=== PATIENT | female | born 1930 | race Caucasian/White ===

== ENCOUNTER → 2019-07-04 | Outpatient (CLI) | payer OTHER ==
[~2019-07-04] MED LIST: CATHETER FLUSH 10 ML SYR IV PRN; HOLD METFORMIN - RECEIVED CONTRAST 20 ML VIAL IV SCH; IOHEXOL 350 MG/ML 100 ML (OMNIPAQUE 350) VIAL IV ONE; NS 100 ML (IVPB) BAG IV ONE
[2019-07-04 12:49] LABS: CREATININE SERUM 1.03 MG/DL (0.60-1.30)
--- NOTE | 2019-07-04 14:02 | Diagnostic Imaging Report ---
PROCEDURE: CT chest with contrast only. TECHNIQUE: Multiple contiguous axial images were obtained through the chest after administration of intravenous contrast. Auto Exposure Controls were utilized during the CT exam to meet ALARA standards for radiation dose reduction. INDICATION: History of colon cancer. COMPARISON: I have no previous for comparison. FINDINGS: Within the right upper lobe laterally, a lingular configured opacity extends to abut the pleura and measures 4.2 x 3.5 cm does. It shows some peripheral air bronchograms but centrally appears more soft tissue in density. While not protocoled for pulmonary arterial evaluation in particular, the regional right upper lobe subtending pulmonary arterial segments show no appreciable occlusion. This therefore is presumed on the basis of pneumonia and inflammatory disease but warrants a CT follow-up to exclude a mass. The heart is upper limits. There is mild venous congestion. No cyrus pulmonary edema. No pleural fluid. There is slight dependent basilar atelectasis. There is a small hiatal hernia. There is no thoracic lymphadenopathy. No acute chest wall pathology. The visualized upper abdomen demonstrates no acute-appearing abnormality. IMPRESSION: Wedge configured triangular opacity, juxtapleural right upper lobe laterally. While the morphology is vocative of a sequelae of PE, there is no identifiable regional pulmonary arterial filling defect or embolus. Follow-up to confirm resolution recommended. No other focal pulmonary pathology. No lymphadenopathy. No acute aortic disease. We note mild cardiomegaly and vascular congestion without pleural fluid or cyrus edema. Dictated by: Dictated on workstation # [id number]
== END ==
LOC: RAD 12:13
PROVIDERS: ATTEND Nurse Practitioner Family
DX: I51.7 Cardiomegaly (principal); J98.4 Other disorders of lung; J44.9 Chronic obstructive pulmonary disease, unspecified; R91.8 Other nonspecific abnormal finding of lung field; R09.89 Other specified symptoms and signs involving the circulatory and respiratory systems; Z86.711 Personal history of pulmonary embolism; Z85.038 Personal history of other malignant neoplasm of large intestine
CPT/HCPCS: 36415; 71260; 82565; 84520

== ENCOUNTER → 2019-07-18 | Outpatient (CLI) | payer OTHER ==
[~2019-07-18] MED LIST changes: -CATHETER FLUSH 10 ML SYR IV PRN; -HOLD METFORMIN - RECEIVED CONTRAST 20 ML VIAL IV SCH; -IOHEXOL 350 MG/ML 100 ML (OMNIPAQUE 350) VIAL IV ONE; -NS 100 ML (IVPB) BAG IV ONE; +RT-ALBUTEROL SULF 2.5 MG/3 ML PRE-MIX VIAL INH ONE
== END ==
LOC: RT 15:37 → EDUNIT# 16:00
PROVIDERS: ATTEND Nurse Practitioner Family
DX: J44.9 Chronic obstructive pulmonary disease, unspecified (principal); J98.4 Other disorders of lung; R91.8 Other nonspecific abnormal finding of lung field; Z86.711 Personal history of pulmonary embolism
CPT/HCPCS: 94060; 94726; 94729

== ENCOUNTER → 2019-08-05 | Outpatient (CLI) | payer OTHER ==
[~2019-08-05] MED LIST changes: +CATHETER FLUSH 10 ML SYR IV PRN; +HOLD METFORMIN - RECEIVED CONTRAST 20 ML VIAL IV SCH; +IOHEXOL 350 MG/ML 100 ML (OMNIPAQUE 350) VIAL IV ONE; +NS 100 ML (IVPB) BAG IV ONE; -RT-ALBUTEROL SULF 2.5 MG/3 ML PRE-MIX VIAL INH ONE
[2019-08-05 10:47] LABS: CREATININE SERUM 0.98 MG/DL (0.60-1.30)
--- NOTE | 2019-08-05 11:42 | Diagnostic Imaging Report ---
PROCEDURE: CT chest with contrast only. TECHNIQUE: Multiple contiguous axial images were obtained through the chest after administration of intravenous contrast. Auto Exposure Controls were utilized during the CT exam to meet ALARA standards for radiation dose reduction. INDICATION: Dyspnea, hypoxia and COPD. Comparison made to prior examination 07/04/2019. FINDINGS: There is an unchanged wedge-shaped consolidation in the periphery of the right upper lobe laterally. There is minimal linear scarring in the left lung base. There is no pleural or pericardial fluid. There is no pneumothorax. The ascending aorta measures up to 4.2 cm. There are no filling defects seen within the pulmonary arteries to suggest pulmonary embolism. There is no pathologically enlarged adenopathy in the chest. There is cardiomegaly and coronary artery calcification. There is a small hiatal hernia. The visualized intra-abdominal structures are unremarkable. There are confluent osteophytes in the thoracic spine suggestive of ankylosing spondylitis. IMPRESSION: Unchanged wedge-shaped consolidation in the lateral aspect the right upper lobe. This likely reflects chronic sequela of either inflammatory process or possibly pulmonary embolism. Cardiomegaly and coronary artery calcification. Enlargement of the ascending aorta up to 4.2 cm. Small hiatal hernia. Degenerative changes in the spine with confluent osteophytes suspect for ankylosing spondylitis. Dictated by: Dictated on workstation # [id number]
== END ==
LOC: RAD 10:15
PROVIDERS: ATTEND Nurse Practitioner Family
DX: J44.9 Chronic obstructive pulmonary disease, unspecified (principal); J18.1 Lobar pneumonia, unspecified organism; J98.4 Other disorders of lung; R91.8 Other nonspecific abnormal finding of lung field
CPT/HCPCS: 36415; 71260; 82565; 84520

== ENCOUNTER 2019-10-31 11:45 | Emergency (ER) | payer OTHER ==
[~2019-10-31] VITALS: Ht 175.3 cm; Wt 90.7 kg
[2019-10-31] MEDS ORDERED: NS IV 500 ML 500 ML IV ONE (11:55)
[2019-10-31 12:10] LABS: BASOPHILS % (AUTO) 0 % (0-10); EOSINOPHILS # (AUTO) 0.2 10^3/uL (0.0-0.3); EOSINOPHILS % (AUTO) 3 % (0-10); HEMATOCRIT 46 % (40-54); HEMOGLOBIN 15.1 G/DL (13.3-17.7); LYMPHOCYTES # (AUTO) 1.4 X 10^3 (1.0-4.0); LYMPHOCYTES % (AUTO) 18 % (12-44); MEAN CORPUSCULAR HEMOGLOBIN 29 PG (25-34); MEAN CORPUSCULAR HGB CONC 33 G/DL (32-36); MEAN CORPUSCULAR VOLUME 90 FL (80-99); MEAN PLATELET VOLUME 10.3 FL (7.4-10.4); MONOCYTES # (AUTO) 0.3 X 10^3 (0.0-1.0); MONOCYTES % (AUTO) 4 % (0-12); NEUTROPHILS # (AUTO) 6.1 X 10^3 (1.8-7.8); NEUTROPHILS % (AUTO) 76 % (42-75); PLATELET COUNT 152 10^3/uL (130-400); WHITE BLOOD COUNT 8.1 10^3/uL (4.3-11.0)
--- NOTE | 2019-10-31 12:16 | ED Syncope ---
General Chief Complaint: Dizziness/Syncope Stated Complaint: SYNCOPE Source of Information: Patient, EMS Exam Limitations: No Limitations History of Present Illness Date Seen by Provider: Oct 31, 2019 Time Seen by Provider: 11:48 Initial Comments Here with report of syncopal episodes this morning while standing up to go to the bathroom. Apparently he passed out and fell against a wall. Complains of head and neck pain as well as left knee pain. Had shoulder pain to the right precipitating the event and it still hurts now. Normal mentation currently and denies headache specifically except for a little bit of pain where he hit his head. No wheezes or abrasions noted or reported. He did have an episode similar to this last year under the same circumstances. Timing/Prior Episodes: Remote History, Single Episode Today Symptoms Prior to Episode: Lightheadedness Precipitating Factors: Standing Loss of Consciousness: Brief (Seconds) Current Symptoms: No Chest Pain, No Loss of Bladder Control, No Loss of Bowel Control, No Nausea, No Pale, No Weakness Allergies and Home Medications Allergies Coded Allergies: No Allergy Information Available (Unverified , 07/04/19) Patient Home Medication List Home Medication List Reviewed: Yes Review of Systems Constitutional: see HPI; No chills, No fever EENTM: no symptoms reported Respiratory: no symptoms reported Cardiovascular: No chest pain; syncope Gastrointestinal: No abdominal pain, No nausea, No vomiting Genitourinary: no symptoms reported Musculoskeletal: No back pain; neck pain Skin: no symptoms reported Psychiatric/Neurological: Denies Anxiety; Headache (mild frontal or he struck his head); Denies Numbness, Denies Paresthesia, Denies Weakness All Other Systems Reviewed Negative Unless Noted: Yes Past Rccturr-Zghxuo-Hpvosh Hx Past Med/Social Hx: Reviewed Nursing Past Med/Soc Hx Patient Social History Alcohol Beverage of Choice: Wine Recent Foreign Travel: No Contact w/Someone Who Travel: No Family Medical History Reviewed Nursing Family Hx No Pertinent Family Hx Physical Exam Vital Signs Vital Signs - First Documented 10/31/19 11:45 Pulse 94 Resp 17 B/P (MAP) 129/68 (88) Pulse Ox 97 O2 Delivery Room Air Capillary Refill : Height, Weight, BMI Height: '" Weight: lbs. oz. kg; BMI Method: General Appearance: No Apparent Distress, WD/WN HEENT: Other (previous right eye surgery with glass. Left pupil pinpoint with extraocular movements intact) Neck: Non Tender, Supple Cardiovascular: Regular Rate, Rhythm, No Murmur Respiratory: Lungs Clear, Normal Breath Sounds Gastrointestinal: Non Tender, Soft Back: Normal Inspection, No CVA Tenderness, No Vertebral Tenderness Extremities: Normal Range of Motion, Other (mild tenderness to the anterior left knee. Superficial abrasion noted in the area of the knee cap anteriorly. No obvious deformity and no significant swelling or leading.) Neurologic/Psychiatric: Alert, Oriented x3, Normal Mood/Affect Cranial Nerves: Normal Hearing, Normal Speech Skin: Warm/Dry, Erythema (with minimal abrasion to the left anterior knee.) Progress/Results/Core Measures Results/Orders Lab Results Laboratory Tests Test 10/31/19 11:55 10/31/19 13:13 Range/Units White Blood Count 8.1 4.3-11.0 10^3/uL Red Blood Count 5.13 4.35-5.85 10^6/uL Hemoglobin 15.1 13.3-17.7 G/DL Hematocrit 46 40-54 % Mean Corpuscular Volume 90 80-99 FL Mean Corpuscular Hemoglobin 29 25-34 PG Mean Corpuscular Hemoglobin Concent 33 32-36 G/DL Red Cell Distribution Width 15.0 H 10.0-14.5 % Platelet Count 152 130-400 10^3/uL Mean Platelet Volume 10.3 7.4-10.4 FL Neutrophils (%) (Auto) 76 H 42-75 % Lymphocytes (%) (Auto) 18 12-44 % Monocytes (%) (Auto) 4 0-12 % Eosinophils (%) (Auto) 3 0-10 % Basophils (%) (Auto) 0 0-10 % Neutrophils # (Auto) 6.1 1.8-7.8 X 10^3 Lymphocytes # (Auto) 1.4 1.0-4.0 X 10^3 Monocytes # (Auto) 0.3 0.0-1.0 X 10^3 Eosinophils # (Auto) 0.2 0.0-0.3 10^3/uL Basophils # (Auto) 0.0 0.0-0.1 10^3/uL Sodium Level 140 135-145 MMOL/L Potassium Level 4.3 3.6-5.0 MMOL/L Chloride Level 104 98-107 MMOL/L Carbon Dioxide Level 26 21-32 MMOL/L Anion Gap 10 5-14 MMOL/L Blood Urea Nitrogen 15 7-18 MG/DL Creatinine 1.26 0.60-1.30 MG/DL Estimat Glomerular Filtration Rate 54 BUN/Creatinine Ratio 12 Glucose Level 140 H 70-105 MG/DL Calcium Level 9.3 8.5-10.1 MG/DL Corrected Calcium 9.1 8.5-10.1 MG/DL Magnesium Level 2.1 1.6-2.4 MG/DL Total Bilirubin 0.5 0.1-1.0 MG/DL Aspartate Amino Transf (AST/SGOT) 16 5-34 U/L Alanine Aminotransferase (ALT/SGPT) 11 0-55 U/L Alkaline Phosphatase 86 40-136 U/L Troponin I < 0.028 <0.028 NG/ML Total Protein 6.5 6.4-8.2 GM/DL Albumin 4.2 3.2-4.5 GM/DL Prothrombin Time 14.2 12.2-14.7 SEC INR Comment 1.1 0.8-1.4 Activated Partial Thromboplast Time 25 24-35 SEC My Orders Orders - AMAIRANI MANLEY MD Ct Head/Cervical Spine Wo (10/31/19 11:55) Ekg Tracing (10/31/19 11:55) Monitor-Rhythm Ecg Trace Only (10/31/19 11:55) Cbc With Automated Diff (10/31/19 11:55) Comprehensive Metabolic Panel (10/31/19 11:55) Magnesium (10/31/19 11:55) Protime With Inr (10/31/19 11:55) Partial Thromboplastin Time (10/31/19 11:55) Troponin I (10/31/19 11:55) Ed Iv/Invasive Line Start (10/31/19 11:55) Ns Iv 500 Ml (Sodium Chloride 0.9%) (10/31/19 11:55) Chest 1 View, Ap/Pa Only (10/31/19 11:55) Knee, Left, 3 Views (10/31/19 12:16) Medications Given in ED Current Medications Medications Dose Ordered Sig/Isabela Route Start Time Stop Time Status Last Admin Dose Admin Sodium Chloride 500 ml @ 0 mls/hr Q0M ONCE IV 10/31/19 11:55 10/31/19 11:58 DC 10/31/19 12:10 0 MLS/HR Vital Signs/I&O 10/31/19 11:45 Pulse 94 Resp 17 B/P (MAP) 129/68 (88) Pulse Ox 97 O2 Delivery Room Air Progress Progress Note : Progress Note Seen and evaluated on arrival by EMS. IV established by EMS. C-collar changed. Does have mild mid neck pain as well as for head pain. We will get CT head and neck. Patient reports that he had right shoulder and arm pain precipitating event so we will go ahead and do EKG as well as labs and troponin. We will get a chest x-ray and left knee x-ray due to findings on history and exam. Monitor patient. 1349: No significant findings and patient is overall doing much better. Discharged home with return precautions. Patient verbalize understanding instructions and agreement with plan. All findings concerns discussed with the patient, his and other family members who are in agreement. Initial ECG Impression Date: Oct 31, 2019 Initial ECG Impression Time: 11:52 Initial ECG Rate: 93 Comment Sinus rhythm with right bundle branch block. Left axis deviation. No evidence of ST elevation [place]. No previous available for comparison. Interpreted by me. Diagnostic Imaging Diagonstic Imaging: Xray Plain Films/CT/US/NM/MRI: chest Comments NAME: STEPHANIE COLINDRES [facility] REC#: [id number] PT STATUS: REG ER : 1930 PHYSICIAN: AMAIRANI MANLEY MD ADMIT DATE: 10/31/19/ER Signed Date of Exam:10/31/19 CHEST 1 VIEW, AP/PA ONLY INDICATION: Status post fall with chest pain. Frontal chest obtained at 12:38 p.m. There is no prior chest x-ray for comparison. FINDINGS: There is cardiomegaly. Mediastinal silhouette is unremarkable. There is a density in the right upper lobe which is unchanged compared to a prior chest CT of 08/05/2019. Lungs are otherwise clear. There is no pneumothorax or pleural fluid. IMPRESSION: Cardiomegaly. Stable density in the right upper lobe, see previous dictation of chest CT of 08/05/2019. No new abnormality. Dictated by: Dictated on workstation # [id number] Dict: 10/31/19 1252 Trans: 10/31/19 1302 [id number] Interpreted by: AMY WU MD Electronically signed by: AMY WU MD 10/31/19 1302 Diagonstic Imaging: CT Plain Films/CT/US/NM/MRI: c-spine, head Comments [facility] [place], [place] NAME: STEPHANIE COLINDRES [facility] REC#: [id number] PT STATUS: REG ER : 1930 PHYSICIAN: AMAIRANI MANLEY MD ADMIT DATE: 10/31/19/ER Draft Date of Exam:10/31/19 CT HEAD/CERVICAL SPINE WO PROCEDURE: CT head and CT cervical spine without contrast. TECHNIQUE: Multiple contiguous axial images were obtained through the brain and cervical spine without the use of intravenous contrast. Sagittal and coronal reformations through the cervical spine were then performed. Auto Exposure Controls were utilized during the CT exam to meet ALARA standards for radiation dose reduction. INDICATION: Fall. COMPARISON: No prior studies are available for comparison. FINDINGS: CT head: The ventricles and sulci are appropriate for the patient's age. Moderate periventricular hypodensity is noted consistent with senescent change. No sulcal effacement or midline shift is identified. No acute intra-axial or extra-axial hemorrhage is detected. Cisterns are patent. Visualized paranasal sinuses are clear. IMPRESSION: Senescent changes. No acute intracranial process is detected. CT cervical spine: Curvature and alignment of cervical spine is normal. There is multilevel degenerative disc disease with variable disc space narrowing and marginal spurring. No fractures are seen. Prevertebral tissues are within normal limits. The odontoid is intact. IMPRESSION: Cervical spondylosis. No acute bony abnormality is detected. Dictated on workstation # [id number] Dict: 10/31/19 1231 Trans: 10/31/19 1236 [facility] [id number] Interpreted by: CAROLANN LYLES MD Electronically signed by: Diagonstic Imaging: Xray Plain Films/CT/US/NM/MRI: knee Comments [facility] [place], [place] NAME: STEPHANIE COLINDRES [facility] REC#: [id number] PT STATUS: REG ER : 1930 PHYSICIAN: AMAIRANI MANLEY MD ADMIT DATE: 10/31/19/ER Draft Date of Exam:10/31/19 KNEE, LEFT, 3 VIEWS INDICATION: Fall with left knee pain. AP, oblique, and lateral views of the left knee are obtained. There is no definite acute fracture or acute bony abnormality. There is superior and inferior patellar spurring. There is mild medial joint space narrowing. There is a calcification adjacent to the medial tibia which appears likely chronic. IMPRESSION: Chronic findings as above with no definite acute abnormality. Dictated on workstation # [id number] Dict: 10/31/19 1302 Trans: 10/31/19 1305 [facility] [id number] Interpreted by: AMY WU MD Electronically signed by: Departure Impression Primary Impression: Syncope Qualified Codes: R55 - Syncope and collapse Additional Impression: Minor closed head injury Disposition: 01 HOME, SELF-CARE Condition: Improved Departure-Patient Inst. Decision time for Depature: 13:51 Referrals: NO,LOCAL PHYSICIAN (PCP/Family) Primary Care Physician Patient Instructions: Closed Head Injury (DC), Syncope (Fainting) (DC) Add. Discharge Instructions: All discharge instructions reviewed with patient and/or family. Voiced understanding. Continue home medications as previously prescribed. Continue breathing treatments as instructed and continue breathing exercises. Drink an adequate amount of fluids. Follow-up with your doctor early next week for recheck and further evaluation. Return for worse pain, fever, vomiting, weakness, breathing problems or other concerns as needed. AMAIRANI MANLEY MD Oct 31, 2019 12:16
[2019-10-31 12:28] LABS: ALANINE AMINOTRANSFERASE 11 U/L (0-55); ALBUMIN 4.2 GM/DL (3.2-4.5); ALKALINE PHOSPHATASE 86 U/L (40-136); BILIRUBIN,TOTAL 0.5 MG/DL (0.1-1.0); BUN/CREATININE RATIO 12; CALCIUM 9.3 MG/DL (8.5-10.1); CARBON DIOXIDE 26 MMOL/L (21-32); CHLORIDE 104 MMOL/L (98-107); CREATININE SERUM 1.26 MG/DL (0.60-1.30); GFR ESTIMATED 54; GLUCOSE 140 MG/DL (70-105); MAGNESIUM 2.1 MG/DL (1.6-2.4); POTASSIUM 4.3 MMOL/L (3.6-5.0); SODIUM 140 MMOL/L (135-145); TOTAL PROTEIN 6.5 GM/DL (6.4-8.2)
--- NOTE | 2019-10-31 12:37 | Diagnostic Imaging Report ---
PROCEDURE: CT head and CT cervical spine without contrast. TECHNIQUE: Multiple contiguous axial images were obtained through the brain and cervical spine without the use of intravenous contrast. Sagittal and coronal reformations through the cervical spine were then performed. Auto Exposure Controls were utilized during the CT exam to meet ALARA standards for radiation dose reduction. INDICATION: Fall. COMPARISON: No prior studies are available for comparison. FINDINGS: CT head: The ventricles and sulci are appropriate for the patient's age. Moderate periventricular hypodensity is noted consistent with senescent change. No sulcal effacement or midline shift is identified. No acute intra-axial or extra-axial hemorrhage is detected. Cisterns are patent. Visualized paranasal sinuses are clear. IMPRESSION: Senescent changes. No acute intracranial process is detected. CT cervical spine: Curvature and alignment of cervical spine is normal. There is multilevel degenerative disc disease with variable disc space narrowing and marginal spurring. No fractures are seen. Prevertebral tissues are within normal limits. The odontoid is intact. IMPRESSION: Cervical spondylosis. No acute bony abnormality is detected. Dictated by: Dictated on workstation # [id number]
--- NOTE | 2019-10-31 12:49 | NUR ---
Cervical collar removed by Dr. Macdonald at 1249.
--- NOTE | 2019-10-31 12:55 | Diagnostic Imaging Report ---
INDICATION: Status post fall with chest pain. Frontal chest obtained at 12:38 p.m. There is no prior chest x-ray for comparison. FINDINGS: There is cardiomegaly. Mediastinal silhouette is unremarkable. There is a density in the right upper lobe which is unchanged compared to a prior chest CT of 08/05/2019. Lungs are otherwise clear. There is no pneumothorax or pleural fluid. IMPRESSION: Cardiomegaly. Stable density in the right upper lobe, see previous dictation of chest CT of 08/05/2019. No new abnormality. Dictated by: Dictated on workstation # [id number]
--- NOTE | 2019-10-31 13:06 | Diagnostic Imaging Report ---
INDICATION: Fall with left knee pain. AP, oblique, and lateral views of the left knee are obtained. There is no definite acute fracture or acute bony abnormality. There is superior and inferior patellar spurring. There is mild medial joint space narrowing. There is a calcification adjacent to the medial tibia which appears likely chronic. IMPRESSION: Chronic findings as above with no definite acute abnormality. Dictated by: Dictated on workstation # [id number]
[2019-10-31 13:43] LABS: INR 1.1 (0.8-1.4); PROTHROMBIN TIME PATIENT 14.2 SEC (12.2-14.7)
[2019-10-31 14:00] VITALS: BP 152/87
--- OUTSIDE RECORDS SUMMARY | 2019-11-04 11:45 | XMS REPORT | Continuity of Care Document ---
Author Organization Unknown Address Unknown Phone Unavailable Allergies Active Description Code Type Severity Reaction Onset Reported/Identified Relationship to Patient Clinical Status Yes CODEINE 3888 DRUG INGREDI Med Rash~Confusion 04/19/2017 Yes LISINOPRIL 50312 DRUG INGREDI Low Nausea~Other 03/03/2018 Yes POTASSIUM CHLORIDE 49398 EMMANUEL G INGREDI Low Nausea 03/03/2018 Yes RANITIDINE 04899 DRUG INGREDI Low Nausea 03/03/2018 Yes No Allergy Information Available K8750 11305 Drug Allergy Unknown N/A 019 Medications There is no data. Problems Date Dx Coded Attending Type Code Diagnosis Diagnosed By 04/19/2017 HARJINDER BROWN I10 Essential (primary) hypertension 04/19/2017 VENANCIO WATSON J44.9 Chronic obstructive pulmonary disease, unspecified 08/15/2018 AMY GALLO 1000 01 Shortness of Breath 08/15/2018 AMY GALLO 1000 01 Shortness of Breath 08/15/2018 AMY GALLO J18. 1 Lobar pneumonia, unspecified organism 08/15/2018 AMY GALLO R91. 8 Other nonspecific abnormal finding of lung field 08/15/2018 AMY GALLO18. 1 Lobar pneumonia, unspecified organism 08/15/2018 AMY GALLO R91. 8 Other nonspecific abnormal finding of lung field 08/15/2018 AMY GALLO18. 1 Lobar pneumonia, unspecified organism 08/15/2018 AMY GALLO R91. 8 Other nonspecific abnormal finding of lung field 09/06/2018 MARCUS BINGHAM L01.01 Non- bullous impetigo 09/06/2018 MARCUS BINGHAM L30.9 Dermatitis, unspecified 03/07/2019 VENANCIO WATSON [id number] Loss of Consciousness 03/07/2019 VENANCIO WATSON [id number] Loss of Consciousness 03/07/2019 VENANCIO WATSON [id number] Loss of Consciousness 03/07/2019 VENANCIO WATSON [id number] Shortness of Breath 03/07/2019 VENANCIO WATSON [id number] Loss of Consciousness 03/07/2019 VENANCIO WATSON [id number] Shortness of Breath 03/07/2019 VENANCIO WATSON [id number] Loss of Consciousness 03/07/2019 VENANCIO WATSON 146401 Shortness of Breath 03/07/2019 VENANCIO WATSON [id number] Loss of Consciousness 03/07/2019 VENANCIO WATSON J44.1 Chronic obstructive pulmonary disease with (acute) exacerbation 03/07/2019 VENANCIO WATSON R09.02 Hypoxemia 03/07/2019 VENANCIO WATSON R55 Syncope and collapse 03/07/2019 VENANCIO WATSON44.1 Chronic obstructive pulmonary disease with (acute) exacerbation 03/07/2019 VENANCIO WATSON R09.02 Hypoxemia 03/07/2019 VENANCIO WATSON R55 Syncope and collapse 03/07/2019 VENANCIO WATSON R55 Syncope and collapse 03/07/2019 VENANCIO WATSON J44.1 Chronic obstructive pulmonary disease with (acute) exacerbation 03/07/2019 VENANCIO WATSON R09.02 Hypoxemia 03/07/2019 VENANCIO WATSON R55 Syncope and collapse 03/07/2019 VENANCIO WATSON T67.1XX A Heat syncope, initial encounter 03/07/2019 HARJINDER BROWN R55 Syncope and collapse 03/07/2019 VENANCIO WATSON44.1 Chronic obstructive pulmonary disease with (acute) exacerbation 03/07/2019 VENANCIO WATSON R09.02 Hypoxemia 03/07/2019 VENANCIO WATSON44.1 Chronic obstructive pulmonary disease with (acute) exacerbation 03/07/2019 VENANCIO WATSON R09.02 Hypoxemia 03/07/2019 VENANCIO WATSON44.1 Chronic obstructive pulmonary disease with (acute) exacerbation 03/07/2019 VENANCIO WATSON R09.02 Hypoxemia 03/07/2019 VENANCIO WATSON44.1 Chronic obstructive pulmonary disease with (acute) exacerbation 03/07/2019 VENANCIO WATSON R09.02 Hypoxemia 03/08/2019 VENANCIO WATSON J44.1 Chronic obstructive pulmonary disease with (acute) exacerbation 03/08/2019 VENANCIO WATSON R09.02 Hypoxemia 03/08/2019 VENANCIO WATSON J44.1 Chronic obstructive pulmonary disease with (acute) exacerbation 03/08/2019 VENANCIO WATSON R09.02 Hypoxemia 03/09/2019 VENANCIO WATSON J44.1 Chronic obstructive pulmonary disease with (acute) exacerbation 03/09/2019 VENANCIO WATSON R09.02 Hypoxemia 03/09/2019 VENANCIO WATSON J44.1 Chronic obstructive pulmonary disease with (acute) exacerbation 03/09/2019 VENANCIO WATSON R09.02 Hypoxemia 03/09/2019 VENANCIO WATSNO J44.1 Chronic obstructive pulmonary disease with (acute) exacerbation 03/09/2019 VENANCIO WATSON R09.02 Hypoxemia 03/09/2019 VENANCIO WATSON44.1 Chronic obstructive pulmonary disease with (acute) exacerbation 03/09/2019 VENANCIO WATSON R09.02 Hypoxemia 03/09/2019 VENANCIO WATSON44.1 Chronic obstructive pulmonary disease with (acute) exacerbation 03/09/2019 VENANCIO WATSON R09.02 Hypoxemia 03/09/2019 VENANCIO WATSON J44.1 Chronic obstructive pulmonary disease with (acute) exacerbation 03/09/2019 VENANCIO WATSON R09.02 Hypoxemia 03/09/2019 VENANCIO WATSON44.1 Chronic obstructive pulmonary disease with (acute) exacerbation 03/09/2019 VENANCIO WATSON R09.02 Hypoxemia 03/09/2019 VENANCIO WATSON44.1 Chronic obstructive pulmonary disease with (acute) exacerbation 03/09/2019 VENANCIO WATSON R09.02 Hypoxemia 03/09/2019 VENANCIO WATSON44.1 Chronic obstructive pulmonary disease with (acute) exacerbation 03/09/2019 VENANCIO WATSON R09.02 Hypoxemia 03/09/2019 VENANCIO WATSON44.1 Chronic obstructive pulmonary disease with (acute) exacerbation 03/09/2019 VENANCIO WATSON R09.02 Hypoxemia 03/10/2019 VENANCIO WATSON J44.1 Chronic obstructive pulmonary disease with (acute) exacerbation 03/10/2019 VENANCIO WATSON R09.02 Hypoxemia 03/10/2019 VENANCIO WATSON44.1 Chronic obstructive pulmonary disease with (acute) exacerbation 03/10/2019 VENANCIO WATSNO R09.02 Hypoxemia 03/10/2019 VENANCIO WATSON44.1 Chronic obstructive pulmonary disease with (acute) exacerbation 03/10/2019 VENANCIO WATSON R09.02 Hypoxemia 03/10/2019 VENANCIO WATSON J44.1 Chronic obstructive pulmonary disease with (acute) exacerbation 03/10/2019 VENANCIO WATSON.9 Chronic obstructive pulmonary disease, unspecified 03/10/2019 VENANCIO WATSON R09.02 Hypoxemia 03/10/2019 VENANCIO WATSON44.1 Chronic obstructive pulmonary disease with (acute) exacerbation 03/10/2019 VENANCIO WATSON.9 Chronic obstructive pulmonary disease, unspecified 03/10/2019 VENANCIO WATSON R09.02 Hypoxemia 03/10/2019 VENANCIO WATSON44.1 Chronic obstructive pulmonary disease with (acute) exacerbation 03/10/2019 VENANCIO WATSON.9 Chronic obstructive pulmonary disease, unspecified 03/10/2019 VENANCIO WATSON R09.02 Hypoxemia 03/11/2019 VENANCIO WATSON44.1 Chronic obstructive pulmonary disease with (acute) exacerbation 03/11/2019 VENANCIO WATSON.9 Chronic obstructive pulmonary disease, unspecified 03/11/2019 VENANCIO WATSON R09.02 Hypoxemia 03/11/2019 VENANCIO WATSON T67.1XX A Heat syncope, initial encounter 03/11/2019 VENANCIO WATSON.1 Chronic obstructive pulmonary disease with (acute) exacerbation 03/11/2019 VENANCIO WATSON.9 Chronic obstructive pulmonary disease, unspecified 03/11/2019 VENANCIO WATSON R09.02 Hypoxemia 03/11/2019 VENANCIO WATSON T67.1XX A Heat syncope, initial encounter 03/11/2019 VENANCIO WATSON44.1 Chronic obstructive pulmonary disease with (acute) exacerbation 03/11/2019 VENANCIO WATSON.9 Chronic obstructive pulmonary disease, unspecified 03/11/2019 VENANCIO WATSON R09.02 Hypoxemia 03/11/2019 VENANCIO WATSON T67.1XX A Heat syncope, initial encounter 03/11/2019 WALTER VENANCIO J44.1 Chronic obstructive pulmonary disease with (acute) exacerbation 03/11/2019 ROLO WATSONEL J44.9 Chronic obstructive pulmonary disease, unspecified 03/11/2019 VENANCIO WATSON R09.02 Hypoxemia 03/11/2019 VENANCIO WATSON T67.1XX A Heat syncope, initial encounter 03/11/2019 WALTER VENANCIO J44.1 Chronic obstructive pulmonary disease with (acute) exacerbation 03/11/2019 WALTER VENANCIO J44.9 Chronic obstructive pulmonary disease, unspecified 03/11/2019 VENANCIO WATSON R09.02 Hypoxemia 03/11/2019 VENANCIO WATSON T67.1XX A Heat syncope, initial encounter 04/02/2019 HARJINDER BROWN [id number] Hypertension 04/02/2019 HARJINDER BROWN E78.5 Hyperlipidemia, unspecified 04/02/2019 DEHARJINDER Boucher E78.5 Hyperlipidemia, unspecified 04/02/2019 DEHARJINDER Boucher I47.1 Supraventricular tachycardia 04/02/2019 HARJINDER BROWN E78.5 Hyperlipidemia, unspecified 04/02/2019 HARJINDER BROWN I47.1 Supraventricular tachycardia 07/08/2019 KITTY BURT APRN Ot 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 07/08/2019 KITTY BURT APRN Ot J44.9 CHRONIC OBSTRUCTIVE PULMONARY DISEASE, U 07/08/2019 KITTY BURT APRN Ot 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 07/08/2019 KITTY BURT APRN Ot R09.89 OTH SYMPTOMS AND SIGNS INVOLVING THE CIR 07/08/2019 KITTY BURT APRN Ot R91.8 OTHER NONSPECIFIC ABNORMAL FINDING OF CRISTA 07/08/2019 KITTY BURT APRN Ot 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 07/08/2019 KITTY BURT APRN Ot 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 07/08/2019 KITTY BURT APRN Ot 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 07/08/2019 KITTY BURT APRN Ot J44.9 CHRONIC OBSTRUCTIVE PULMONARY DISEASE, U 07/08/2019 KITTY BURT SOLDERER Ot 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 07/08/2019 CARMEL, KITTY Mao SOLDERER Ot R09.89 OTH SYMPTOMS AND SIGNS INVOLVING THE CIR 07/08/2019 CARMEL, KITTY Cavanaugh SOLDERER Ot R91.8 OTHER NONSPECIFIC ABNORMAL FINDING OF CRISTA 07/08/2019 CARMEL, KITTY Cavanaugh SOLDERER Ot 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 07/08/2019 KITTY BURT SOLDERER Ot 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 07/22/2019 KITTY BURT SOLDERER Ot J44.9 CHRONIC OBSTRUCTIVE PULMONARY DISEASE, U 07/22/2019 KITTY BURT SOLDERER Ot 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 07/22/2019 KITTY BURT SOLDERER Ot R91.8 OTHER NONSPECIFIC ABNORMAL FINDING OF CRISTA 07/22/2019 KITTY BURT SOLDERER Ot 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 08/05/2019 KITTY BURT SOLDERER Ot 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 08/05/2019 KITTY BURT SOLDERER Ot J44.9 CHRONIC OBSTRUCTIVE PULMONARY DISEASE, U 08/05/2019 KITTY BURT SOLDERER Ot 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 08/05/2019 CARMEL KITTY Cavanaugh SOLDERER Ot R09.89 OTH SYMPTOMS AND SIGNS INVOLVING THE CIR 08/05/2019 KITTY BURT SOLDERER Ot R91.8 OTHER NONSPECIFIC ABNORMAL FINDING OF CRISTA 08/05/2019 KITTY BURT SOLDERER Ot 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 08/07/2019 CARMELFRIDA HEADINE E SOLDERER Ot R91.8 OTHER NONSPECIFIC ABNORMAL FINDING OF CRISTA 09/18/2019 FRIDA BURTINE E SOLDERER Ot 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 09/18/2019 FRIDA BURTINE E SOLDERER Ot J44.9 CHRONIC OBSTRUCTIVE PULMONARY DISEASE, U 09/18/2019 FRIDA BURTINE E SOLDERER Ot 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 09/18/2019 FRIDA BURTINE Mao SOLDERER Ot R09.89 OTH SYMPTOMS AND SIGNS INVOLVING THE CIR 09/18/2019 FRIDA BURTINE E SOLDERER Ot R91.8 OTHER NONSPECIFIC ABNORMAL FINDING OF CRISTA 09/18/2019 FRIDA BURTINE E SOLDERER Ot 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 09/18/2019 FRIDA BURTINE E SOLDERER Ot 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 10/31/2019 FRIDA BURTINE Mao SOLDERER Ot 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 10/31/2019 FRIDA BURTINE Mao SOLDERER Ot J44.9 CHRONIC OBSTRUCTIVE PULMONARY DISEASE, U 10/31/2019 FRIDA BURTINE Mao SOLDERER Ot 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 10/31/2019 FRIDA BURTINE Mao SOLDERER Ot R09.89 OTH SYMPTOMS AND SIGNS INVOLVING THE CIR 10/31/2019 FRIDA BURTINE E SOLDERER Ot R91.8 OTHER NONSPECIFIC ABNORMAL FINDING OF CRISTA 10/31/2019 FRIDA BURTINE Mao SOLDERER Ot 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 10/31/2019 CARMEL KITTY E SOLDERER Ot 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 10/31/2019 FRIDA BURTINE E SOLDERER Ot J44.9 CHRONIC OBSTRUCTIVE PULMONARY DISEASE, U 10/31/2019 FRIDA BURTINE E SOLDERER Ot 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 10/31/2019 FRIDA BURTINE E SOLDERER Ot R91.8 OTHER NONSPECIFIC ABNORMAL FINDING OF CRISTA 10/31/2019 FRIDA BURTINE Mao SOLDERER Ot 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 10/31/2019 CARMELFRIDA HEADINE E SOLDERER Ot J18.1 LOBAR PNEUMONIA, UNSPECIFIED ORGANISM 10/31/2019 KITTY BURT SOLDERER Ot J44.9 CHRONIC OBSTRUCTIVE PULMONARY DISEASE, U 10/31/2019 KITTY BURT SOLDERER Ot 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 10/31/2019 KITTY BURT SOLDERER Ot R91.8 OTHER NONSPECIFIC ABNORMAL FINDING OF CRISTA Procedures Code Description Performed By Per formed On ECG1 ECG 08/15/2018 [id number] CB C AND DIFF (MANUAL DIFF IF NECESSARY) 08/15/2018 BBC6679 CO MPREHENSIVE METABOLIC PANEL 08/15/2018 [id number] LIPASE 08/15/2018 EIB0804 GA OTHROMBIN TIME/INR 08/15/2018 ELH9634 TR OPONIN 08/15/2018 JMY9071 XR CHEST SINGLE VIEW FRONTAL 08/15/[address] ANGIO CHEST 08/15/2018 ECG1 ECG 03/07/2019 ECG1 ECG 03/07/[address] HEAD WO CONTRAST 03/07/2019 [id number] XR CHEST SINGLE VIEW FRONTAL 03/07/2019 IVT11 SALI NE LOCK IV 03/07/2019 QXV0972 CB C AND DIFF (MANUAL DIFF IF NECESSARY) 03/07/2019 SFN5982 CO MPREHENSIVE METABOLIC PANEL 03/07/2019 DOD0536 TR OPONIN 03/07/2019 UWD4454 UR INALYSIS (INCLUDES MICROSCOPIC REVIEW, IF INDICATED) 03/07/2019 DPV5965 CB C AND DIFF (MANUAL DIFF IF NECESSARY) 03/07/2019 DTY9040 CO MPREHENSIVE METABOLIC PANEL 03/07/2019 YTD5539 TR OPONIN 03/07/2019 IOC6912 XR CHEST SINGLE VIEW FRONTAL 03/07/[address] HEAD WO CONTRAST 03/07/2019 SKX3960 UR INALYSIS (INCLUDES MICROSCOPIC REVIEW, IF INDICATED) 03/07/[address] ANGIO CHEST 03/07/2019 QNE5231 LA CTATE VENOUS WB 03/07/2019 MNT1862 CU LTURE, BLOOD 03/07/2019 KWX5938 CU LTURE, BLOOD 03/07/2019 ADT9 ED AD TG TO INPATIENT 03/07/2019 HRG0491 LA CTATE VENOUS WB 03/07/2019 EYU6856 CU LTURE, BLOOD 03/07/2019 ECH25 ECHO COMPLETE WITH DOPPLER AND COLOR FLOW 03/07/2019 NXJ1242 TR OPONIN 03/07/2019 ZSZ665 ROSALEE SING COMMUNICATION 03/07/2019 COD2 FULL CODE 03/07/2019 NPV496 COURTNEY SON FOR NO VTE PROPHYLAXIS - MECHANICAL 03/07/2019 FVP5883 BA SIC METABOLIC PANEL 03/07/2019 RMS8793 CB C AND DIFF (MANUAL DIFF IF NECESSARY) 03/07/2019 ZMV400 ACT IVITY TOLERATED 03/07/2019 OGC311 NOT PIEDAD PHYSICIAN 03/07/2019 DRO945 ROSALEE SING COMMUNICATION 03/07/2019 UBB974 VIT AL SIGNS 03/07/2019 ZBD866 TEL EMETRY MONITORING - CLASS II 03/07/2019 IHV541 THOMAS DDER SCANNING ALGORITHM 03/07/2019 RT41 RT CO NSULT - EVAL/TREAT (RATE) 03/07/2019 MXD7452 TR OPONIN 03/07/2019 RT41 RESPI RATORY CRITERIA 03/07/2019 RT51 OXYGEN 03/07/2019 ECH25 ECHO COMPLETE WITH DOPPLER AND COLOR FLOW 03/07/2019 MHJ8622 TR OPONIN 03/07/2019 GUZ632 MIKO LY WEIGHTS 03/08/2019 WOU4 WOUND CARE TEAM CONSULT 03/08/2019 GMI9426 BA SIC METABOLIC PANEL 03/08/2019 NCL8221 CB C AND DIFF (MANUAL DIFF IF NECESSARY) 03/08/2019 PRE5 FALL PRECAUTIONS 03/08/2019 RT16 INCEN TIVE SPIROMETRY RT 03/08/2019 DIET24 DIET 03/08/2019 CON54 IP C ONSULT TO PULMONOLOGY 03/08/2019 OLH547 IP CONSULT TO CARDIOLOGY 03/09/2019 CGX091 WOU ND CARE INSTRUCTIONS FOR NURSING (SPECIFY) 03/10/2019 JPH351 WOU ND CARE INSTRUCTIONS FOR NURSING (SPECIFY) 03/11/2019 DIET24 DIET 03/11/2019 BVW103 THE RAPEUTIC WALK 03/11/2019 FEZ492 ACT IVITY TOLERATED 03/11/2019 UBU733 DIS CHARGE INSTRUCTIONS 03/11/2019 DIET24 DIET 03/11/2019 ARI132 ACT IVITY TOLERATED 03/11/2019 DEC609 FOL LOW UP PRIMARY PHYSICIAN 03/11/2019 AOM137 DIS CHARGE INSTRUCTIONS 03/11/2019 BVQ151 DIS CHARGE FOLLOW UP 03/11/2019 ADT8 DISCH ARGE PATIENT 03/11/2019 IVT10 DISC ONTINUE IV 03/11/2019 Results Test Result Range CULTURE, WOUND WITH GRAM STAIN - 9 15:00 Culture result Few Mixed cutaneous pierre isolated NRG Gram Stain No organisms seen NRG CBC AND DIFF (MANUAL DIFF IF NECESSARY) - 03/07/19 11:25 WBC 6.01 4.00-11.00 Hematocrit 42 40-50 Hemoglobin 13.9 13.0-17.0 MCH 30 27-34 MCHC 33 32-36 MCV 91 80-99 MPV 10.3 9.4-12.3 Platelet Count 118 140-400 RBC 4.57 4.31-5.84 RDW 13.4 11.5-14.5 NUCLEATED RBCS 0 0-0 % NEUTROPHILS 70 45-78 %LYMPHOCYTES 22 15-47 %MONOCYTES 5 0-12 %EOSINOPHILS 3 0-7 %BASOPHILS 0 0-2 % IMM GRANS 0 0-1 # GRANULOCYTES 4.20 1.70-6.80 # LYMPHOCYTES 1.30 1.00-3.30 # MONOCYTES 0.30 0.20-0.90 # EOSINOPHILS 0.19 0.00-0.40 # BASOPHILS 0.02 0.00-0.10 COMPREHENSIVE METABOLIC PANEL - 03/07/19 11:25 Alanine Aminotransferase 12 0-49 Albumin 3.6 3.5-5.0 Alkaline Phosphatase 66 42-140 Aspartate Aminotransferase 14 15- 46 Blood Urea Nitrogen 16 7-26 Chloride 103 96-112 Carbon Dioxide 32 20-32 Creatinine 0.9 0.6-1.3 Glucose 125 70-100 Potassium 3.8 3.5-5.3 Sodium 138 133-147 Calcium 8.6 8.4-10.5 Anion Gap 4 TX 5-17 Protein Total Serum 5.9 6.0-8.2 GFR MALE AA 96 60-200 GFR MALE NON-AA 80 60-200 BILIRUBIN TOTAL 0.5 0.2-1.3 TROPONIN - 03/07/19 11:25 Troponin < 0.00-0.03 URINALYSIS - 03/07/19 13:33 APPEARANCE, URINE Yellow NRG GLUCOSE URINE Negative Negative BILIRUBIN URINE Negative Negative KETONES URINE Negative Negative SPECIFIC GRAVITY UA 1.015 TX 1.001-1.03 0 HEMOGLOBIN URINE Negative Negative PH URINE 6.0 TX 5.0-8.0 PROTEIN URINE QUAL Negative Negative UROBILINOGEN URINE Negative Negative NITRITE URINE Negative Negative LEUKOCYTE ESTERASE Negative Negative CULTURE, BLOOD - 03/07/19 14:55 Culture result No Growth at 5 days NRG LACTATE VENOUS WB - 03/07/19 15:00 LACTATE VENOUS 1.7 0.0-2.0 CULTURE, BLOOD - 03/07/19 15:00 Culture result No Growth at 5 days NRG TROPONIN - 03/07/19 16:43 Troponin < 0.00-0.03 TROPONIN - 03/07/19 21:10 Troponin < 0.00-0.03 CBC AND DIFF (MANUAL DIFF IF NECESSARY) - 03/08/19 03:10 WBC 9.34 4.00-11.00 Hematocrit 48 40-50 Hemoglobin 16.2 13.0-17.0 MCH 31 27-34 MCHC 34 32-36 MCV 90 80-99 MPV 10.5 9.4-12.3 Platelet Count 155 140-400 RBC 5.31 4.31-5.84 RDW 13.2 11.5-14.5 NUCLEATED RBCS 0 0-0 % NEUTROPHILS 90 45-78 %LYMPHOCYTES 10 15-47 %MONOCYTES 0 0-12 %EOSINOPHILS 0 0-7 %BASOPHILS 0 0-2 % IMM GRANS 1 0-1 # GRANULOCYTES 8.42 1.70-6.80 # LYMPHOCYTES 0.89 1.00-3.30 # MONOCYTES 0.03 0.20-0.90 # EOSINOPHILS 0.00 0.00-0.40 # BASOPHILS 0.01 0.00-0.10 BASIC METABOLIC PANEL - 03/08/19 03:10 Blood Urea Nitrogen 14 7-26 Chloride 104 96-112 Carbon Dioxide 24 20-32 Creatinine 0.8 0.6-1.3 Glucose 163 70-100 Potassium 4.5 3.5-5.3 Sodium 139 133-147 Calcium 9.5 8.4-10.5 Anion Gap 11 TX 5-17 GFR MALE AA 110 60-200 GFR MALE NON-AA 91 60-200 Complete blood count (CBC) with automate d white blood cell (WBC) differential - 10/31/19 11:55 Blood leukocytes automated count (number/volume) 8.1 10*3/uL 4.3-11.0 Blood erythrocytes automated count (number/volume) 5.13 10*6/uL 4.35-5.85 Venous blood hemoglobin measurement (mass/volume) 15.1 g/dL 13.3-17.7 Blood hematocrit (volume fraction) 46 % 40-54 Automated erythrocyte mean corpuscular volume 90 [ foz_us] 80-99 Automated erythrocyte mean corpuscular h emoglobin (mass per erythrocyte) 29 pg 25-34 Automated erythrocyte mean corpuscular h emoglobin concentration measurement (mass/volume) 33 g/dL 32-36 Automated erythrocyte distribution width ratio 15. 0 % 10.0- 14.5 Automated blood platelet count (count/volume) 152 10*3/uL 130-400 Automated blood platelet mean volume measurement 10.3 [foz_us] 7.4-10.4 Automated blood neutrophils/100 leukocytes 76 % 42-75 Automated blood lymphocytes/100 leukocytes 18 % 12-44 Blood monocytes/100 leukocytes 4 % 0-12 Automated blood eosinophils/100 leukocytes 3 % 0-10 Automated blood basophils/100 leukocytes 0 % 0-10 Blood neutrophils automated count (number/volume) 6.1 10*3 1.8-7.8 Blood lymphocytes automated count (number/volume) 1.4 10*3 1.0-4.0 Blood monocytes automated count (number/volume) 0. 3 10*3 0.0-1.0 Automated eosinophil count 0.2 10*3/uL 0 .0-0.3 Automated blood basophil count (count/volume) 0.0 10*3/uL 0.0-0.1 Comprehensive metabolic panel - 10/31/19 11:55 Serum or plasma sodium measurement (moles/volume) 140 mmol/L 135-145 Serum or plasma potassium measurement (moles/volume) 4.3 mmol/L 3.6-5.0 Serum or plasma chloride measurement (moles/volume) 104 mmol/L 98-107 Carbon dioxide 26 mmol/L 21-32 Serum or plasma anion gap determination (moles/volume) 10 mmol/L 5-14 Serum or plasma urea nitrogen measurement (mass/volume ) 15 mg/dL 7-18 Serum or plasma creatinine measurement (mass/volume) 1.26 mg/dL 0.60-1.30 Serum or plasma urea nitrogen/creatinine mass ratio 12 NRG Serum or plasma creatinine measurement w ith calculation of estimated glomerular filtration rate 54 NRG Serum or plasma glucose measurement (mass/volume) 140 mg/dL 70-105 Serum or plasma calcium measurement (mass/volume) 9.3 mg/dL 8.5-10.1 Serum or plasma total bilirubin measurement (mass/volu me) 0.5 mg/dL 0.1-1.0 Serum or plasma alkaline phosphatase mila surement (enzymatic activity/volume) 86 U/L 40-136 Serum or plasma aspartate aminotransfera se measurement (enzymatic activity/volume) 16 U/L 5-34 Serum or plasma alanine aminotransferase measurement (enzymatic activity/volume) 11 U/L 0-55 Serum or plasma protein measurement (mass/volume) 6.5 g/dL 6.4-8.2 Serum or plasma albumin measurement (mass/volume) 4.2 g/dL 3.2-4.5 CALCIUM CORRECTED 9.1 mg/dL 8.5-10.1 Magnesium - 10/31/19 11:55 Magnesium 2.1 mg/dL 1.6-2.4 Serum or plasma troponin i.cardiac measu rement (mass/volume) - 10/31/19 11:55 Serum or plasma troponin i.cardiac measurement (mass/v olume) < ng/mL <0.028 PT panel in platelet poor plasma by coag ulation assay - 10/31/19 13:13 Prothrombin time (PT) in platelet poor plasma by coagu lation assay 14.2 s 12.2-14.7 INR in platelet poor plasma or blood by coagulation as say 1.1 0.8-1.4 Activated partial thromboplastin time (a PTT) in platelet poor plasma bycoagulation assay - 10/31/19 13:13 Activated partial thromboplastin time (a PTT) in platelet poor plasma bycoagulation assay 25 s 24-35 Encounters ACCT No. Visit Date/Time Discharge Status Pt. Type Provider Facility Loc./Unit Complaint [id number] 04/02/2019 09:07:33 23:59:59 CLS Outpatient HARJINDER BROWN [facility] Hypertension [id number] 03/07/2019 10:58:54 11:28:00 DIS Inpatient VENANCIO WATSON [facility] 3[facility] INT Hypoxemia [id number] 09/06/2018 15:00:00 23:59:00 DIS Outpatient [facility] Non-bullous impetigo [id number] 08/15/2018 10:52:10 14:29:00 DIS Emergency [facility] ED Shortness of Breath [id number] 03/13/2019 10:35:48 Document Registration [id number] 10/31/2019 11:47:00 14:04:00 DIS Emergency VINEET ESPAÑA, AMAIRANI Christianson [facility] ER SYNCOPE [id number] 08/05/2019 10:15:00 23:59:59 CLS Outpatient KITTY BURT APRN [facility] RAD COPD,DYSPNEA,OT HER DISORDERS OF LUNG [id number] 07/18/2019 15:37:00 23:59:59 CLS Outpatient KITTY BURT APRN [facility] RT DYSPNEA [id number] 07/04/2019 12:13:00 23:59:59 CLS Outpatient KITTY BURT APRN [facility] RAD DYSPNEA
== END 2019-10-31 14:04 | disposition home or self-care (01) ==
LOC: EDUNIT# 11:45 → ER 11:47
DX: S09.90XA Unspecified injury of head, initial encounter (principal); R55 Syncope and collapse; W18.39XA Other fall on same level, initial encounter
CPT/HCPCS: 36415; 70450; 71045; 72125; 73562; 80053; 83735; 84484; 85025; 85610; 85730; 93005; 93041